=== PATIENT | female | born 1985 | race African-American/Black ===

== ENCOUNTER 2018-09-19 13:19 | Emergency (ER) | payer OTHER ==
[2018-09-19 13:46] VITALS: BP 105/42; PULSE 73; TEMP 98.4; BMI 26.8
--- NOTE | 2018-09-19 14:22 | PDOC ---
History of Present Illness - General Chief Complaint: Injury Stated Complaint: SPRAIN ANKLE Time Seen by Provider: 09/19/18 13:50 History Source: Patient Exam Limitations: Clinical Condition - History of Present Illness Initial Comments: 09/19/18 14:11 Patient with no significant past medical history present with completely normal pain to left ankle on the lateral side status post stepping on a pot hole yesterday and twisting left ankle. Patient reported increased pain to left ankle but is able to ambulate on the left foot. Patient denies any other symptoms Timing/Duration: 24 hours Past History - Past Medical History Allergies/Adverse Reactions: Allergies Allergy/AdvReac Type Severity Reaction Status Date / Time No Known Allergies Allergy Verified 09/19/18 13:45 Home Medications: Ambulatory Orders Levothyroxine [Synthroid -] 88 mcg PO DAILY 09/19/18 Naproxen 500 mg PO BID PRN #20 tablet 09/19/18 COPD: No Thyroid Disease: Yes (HYPO) - Reproductive History (#): 0 Para: 0 - Suicide/Smoking/Psychosocial Hx Smoking History: Never smoked Have you smoked in the past 12 months: No Hx Alcohol Use: No Drug/Substance Use Hx: No Substance Use Type: None Review of Systems - Review of Systems Able to Perform ROS?: Yes Is the patient limited Ukrainian proficient: No Constitutional: No: Weakness HEENTM: No: Symptoms Reported Respiratory: No: Symptoms reported Cardiac (ROS): No: Symptoms Reported ABD/GI: No: Symptoms Reported Musculoskeletal: Yes: See HPI, Joint Pain (left ankle), Joint Swelling (left ankle), Muscle Pain (lateral side of left ankle). No: Muscle Weakness All Other Systems: Reviewed and Negative *Physical Exam - Vital Signs Last Vital Signs Temp Pulse Resp BP Pulse Ox 98.4 F 73 18 105/42 L 99 09/19/18 13:43 09/19/18 13:43 09/19/18 13:43 09/19/18 13:43 09/19/18 13:43 - Physical Exam Comments: 09/19/18 14:14 GENERAL: Well developed, well nourished. Awake and alert. No acute distress. CARDIOVASCULAR: Regular rate and rhythm. No murmurs, rubs, or gallops. PULMONARY: No evidence of respiratory distress. Lungs clear to auscultation bilaterally. No wheezing, rales or rhonchi. ABDOMINAL: Soft. Non-tender. Non-distended. No rebound or guarding. No organomegaly. Normoactive bowel sounds MUSCULOSKELETAL : mild swelling over lateral malleolus of left ankle. moderate tenderness over lateral malleolus of left ankle with mild tenderness over dorsum of proximal foot. No bony deformities SKIN: Warm and dry. no cyanosis NEUROLOGICAL: Alert, awake, appropriate. No motor deficits in the lower extremities. Gait is normal with mild limp PSYCHIATRIC: Cooperative. Good eye contact. Appropriate mood and affect. General Appearance: Yes: Nourished, Appropriately Dressed. No: Apparent Distress Moderate Sedation - Procedure Monitoring Vital Signs: Procedure Monitoring Vital Signs Temperature 98.4 F 09/19/18 13:43 Pulse Rate 73 09/19/18 13:43 Respiratory Rate 18 09/19/18 13:43 Blood Pressure 105/42 L 09/19/18 13:43 O2 Sat by Pulse Oximetry (%) 99 09/19/18 13:43 ED Treatment Course - RADIOLOGY Radiology Studies Ordered: Category Date Time Status ANKLE & FOOT-LEFT* [RAD] Stat Radiology 09/19/18 14:09 Ordered Medical Decision Making - Medical Decision Making 09/19/18 14:41 Patient with no significant past medical history present with completely normal pain to left ankle on the lateral side status post stepping on a pot hole yesterday and twisting left ankle. Patient reported increased pain to left ankle but is able to ambulate on the left foot. Exam significant for mild swelling over lateral malleolus of left ankle. moderate tenderness over lateral malleolus of left ankle with mild tenderness over dorsum of proximal foot. 09/19/18 14:41 x-ray of left ankle shows no acute fracture or dislocation except lateral soft tissue swelling. Patient stable for discharge on ankle support aircast brace and postop boots with orthopedics follow-up as needed. no needed for crutches as pt able to ambulate without difficulty. *DC/Admit/Observation/Transfer Diagnosis at time of Disposition: Left ankle sprain Qualifiers: Encounter type: initial encounter Involved ligament of ankle: unspecified ligament Qualified Code(s): S93.402A - Sprain of unspecified ligament of left ankle, initial encounter - Discharge Dispostion Disposition: HOME Condition at time of disposition: Stable Decision to Admit order: No - Prescriptions Prescriptions: Naproxen 500 mg PO BID PRN #20 tablet PRN Reason: ankle pain - Referrals Referrals: Contreras Morales MD [Primary Care Provider] - - Patient Instructions Printed Discharge Instructions: DI for Ankle Sprain Additional Instructions: Ankle x-ray shows no acute fracture or dislocation ,x-ray shows mild swelling to ankle. Use ankle brace daily to help support ankle and take prescribed medication as needed for pain. Follow-up referred to orthopedics if symptoms persisted for more than 5 days. - Post Discharge Activity Forms/Work/School Notes: Back to Work
== END 2018-09-19 15:05 | disposition home or self-care (01) ==
LOC: JERFT 13:19
PROC: 2W3RX1Z Immobilization of Left Lower Leg using Splint (ICD-10-PCS; principal; 2018-09-19)
DX: S93.402A Sprain of unspecified ligament of left ankle, initial encounter (principal); X50.1XXA Overexertion from prolonged static or awkward postures, initial encounter; Y93.01 Activity, walking, marching and hiking; Y92.488 Other paved roadways as the place of occurrence of the external cause; Y99.8 Other external cause status
CPT/HCPCS: 73610-TC-LT-FY; 73630-TC-LT; 99281-25

== ENCOUNTER 2020-09-27 04:33 | Inpatient (IN) | payer OTHER ==
[2020-09-25 09:01] VITALS: BMI 28.3
[2020-09-27] MEDS ORDERED: CEFAZOLIN 2 GM/D5W 2 GM/50 ML ML IVPB ONE (06:30)
[2020-09-27] MEDS ORDERED: MIDAZOLAM HCL 2 MG/2 ML SINGLE DOSE VIAL ONE ×2 (07:22)
[2020-09-27] MEDS ORDERED: BUPIVACAINE LIPOSOME/PF (EXPAREL) 266 MG/20 ML VIAL ONE (07:32)
[2020-09-27] MEDS ORDERED: ceFAZolin 2 GRAM PREMIX BAG IVPB ONE (08:10)
[2020-09-27] MEDS ORDERED: ACETAMINOPHEN 325 MG TABLET (FP) PO PRN (09:52)
[2020-09-27] MEDS ORDERED: oxyCODONE HCL 5 MG TABLET PO PRN (09:52)
[2020-09-27] MEDS ORDERED: DOCUSATE SODIUM 100 MG CAPSULE (FP) PO PRN (09:52)
[2020-09-27] MEDS ORDERED: ONDANSETRON 4 MG/2 ML VIAL IVPUSH PRN (09:52)
[2020-09-27] MEDS ORDERED: BISACODYL 5 MG TABLET.DR (FP) PO PRN (09:52)
[2020-09-27] MEDS ORDERED: CEFAZOLIN 1 GM/D5W 1 GM/50 ML BAG IVPB SCH (10:00)
[2020-09-27] MEDS ORDERED: LACTATED RINGERS SOLUTION 1,000 ML IV SCH (10:30)
[2020-09-27] MEDS: CEFAZOLIN 1 GM/D5W 1 GM/50 ML BAG IVPB SCH (15:54)
[2020-09-27] MEDS ORDERED: CEFAZOLIN 1 GM in DEXTROSE 5%-WATER - 1 GM/50 ML IVPB IVPB SCH (16:00)
[2020-09-27] MEDS ORDERED: IBUPROFEN 800 MG/8 ML IJ IVPB PRN (18:00)
[2020-09-27 18:53] LABS: MCHC 32.4 g/dl (32.0-36.0); MEAN CELL VOLUME 71.2 fl (80-96); RBC 4.35 M/mm3 (3.60-5.2); RDW 26.3 % (11.6-15.6); WHITE BLOOD COUNT 15.1 K/mm3 (4.0-10.0)
[2020-09-27 19:14] LABS: POTASSIUM 4.2 mmol/L (3.5-5.1)
[2020-09-27 19:15] LABS: CALCIUM 8.3 mg/dL (8.5-10.1)
[2020-09-27 19:16] LABS: BLOOD UREA NITROGEN 12.3 mg/dL (7-18)
[2020-09-27 19:19] LABS: CREATININE 0.8 mg/dL (0.55-1.3)
[2020-09-27 19:57] LABS: MEAN PLT VOLUME 9.4 fl (7.5-11.1); PLATELET COUNT 197 K/MM3 (134-434)
[2020-09-27] MEDS ORDERED: ACETAMINOPHEN INJECTION 100 ML IVPB ONE (22:47)
[2020-09-27] MEDS: ACETAMINOPHEN 1000 MG/100 ML VIAL (NON FORMULARY) IVPB PRN (22:51)
[2020-09-28] MEDS: CEFAZOLIN 1 GM/D5W 1 GM/50 ML BAG IVPB SCH ×2 (01:00→08:08)
[2020-09-28] MEDS: ACETAMINOPHEN 1000 MG/100 ML VIAL (NON FORMULARY) IVPB PRN ×2 (06:50→13:15)
[2020-09-28 08:43] LABS: HEMATOCRIT 27.9 % (32.4-45.2); HEMOGLOBIN 9.2 GM/dL (10.7-15.3); MCH 23.5 pg (25.7-33.7); MEAN CELL VOLUME 71.1 fl (80-96); PLATELET COUNT 174 K/MM3 (134-434); RBC 3.93 M/mm3 (3.60-5.2); RDW 26.4 % (11.6-15.6); WHITE BLOOD COUNT 10.6 K/mm3 (4.0-10.0)
[2020-09-28] MEDS: LEVOTHYROXINE NA 100 MCG TABLET (FP) PO SCH (08:46)
[2020-09-28 08:50] LABS: POTASSIUM 3.7 mmol/L (3.5-5.1)
[2020-09-28 08:52] LABS: BLOOD UREA NITROGEN 9.5 mg/dL (7-18)
[2020-09-28 08:53] LABS: CALCIUM 8.2 mg/dL (8.5-10.1)
[2020-09-28 08:55] LABS: CREATININE 0.7 mg/dL (0.55-1.3)
[2020-09-28] MEDS: IBUPROFEN 800 MG/8 ML IJ IVPB PRN ×2 (08:57→21:00)
[2020-09-28] MEDS: ENOXAPARIN NA (PORCINE) 40 MG/0.4 ML DISP.SYRIN SQ SCH (11:24)
[2020-09-28] MEDS: SIMETHICONE 80 MG TAB.CHEW (FP) PO PRN ×2 (11:25→16:48)
[2020-09-28] MEDS: FERROUS SO4/VIT C/FA 1 EACH TABLET.ER PO SCH (11:25)
[2020-09-28] MEDS: oxyCODONE HCL 5 MG TABLET PO PRN (16:47)
[2020-09-29] MEDS: oxyCODONE HCL 5 MG TABLET PO PRN ×3 (02:24→11:09)
[2020-09-29] MEDS: SIMETHICONE 80 MG TAB.CHEW (FP) PO PRN ×2 (02:25→07:58)
[2020-09-29] MEDS: LEVOTHYROXINE NA 100 MCG TABLET (FP) PO SCH (06:40)
[2020-09-29 10:27] VITALS: BP 125/82; PULSE 80; TEMP 98
[2020-09-29] MEDS: ENOXAPARIN NA (PORCINE) 40 MG/0.4 ML DISP.SYRIN SQ SCH (11:08)
[2020-09-29] MEDS: FERROUS SO4/VIT C/FA 1 EACH TABLET.ER PO SCH (11:15)
== END 2020-09-29 12:10 | disposition home or self-care (01) | DRG 743 ==
LOC: J2C 04:33 → J3W 14:47
PROVIDERS: ADMIT Obstetrics & Gynecology; ATTEND Obstetrics & Gynecology
PROC: 0UB90ZZ Excision of Uterus, Open Approach (ICD-10-PCS; principal; 2020-09-27 07:30)
DX: D25.1 Intramural leiomyoma of uterus (principal)
CPT/HCPCS: 36415; 36430; 80048; 84703; 85027; 86850; 86900; 86901; 86922; 88305-TC; 94010; 94760; J0131; P9058

== ENCOUNTER 2021-06-06 04:54 | Day surgery (SDC) | payer OTHER ==
[2021-06-05 16:27] VITALS: BMI 29.2
[2021-06-06] MEDS ORDERED: MIDAZOLAM HCL 2 MG/2 ML SINGLE DOSE VIAL ONE (14:54)
[2021-06-06] MEDS ORDERED: PROPOFOL 20 ML ONE (14:54)
[2021-06-06] MEDS ORDERED: oxyCODONE HCL 5 MG TABLET PO PRN ×2 (15:22→19:13)
[2021-06-06] MEDS ORDERED: ACETAMINOPHEN 325 MG TABLET (FP) PO PRN (15:22)
[2021-06-06] MEDS ORDERED: IBUPROFEN 400 MG TABLET (FP) PO PRN (15:22)
[2021-06-06] MEDS ORDERED: OXYTOCIN 20 UNITS in LACTATED RINGERS SOLUTION 1,000 ML IVPB ONE (16:35)
[2021-06-06] MEDS ORDERED: OXYTOCIN 10 UNITS/ML VIAL ONE (16:36)
[2021-06-06] MEDS ORDERED: ONDANSETRON 4 MG/2 ML VIAL IVPUSH PRN (19:13)
[2021-06-06] MEDS ORDERED: LACTATED RINGERS SOLUTION 1,000 ML IV SCH (19:15)
[2021-06-06 19:38] VITALS: BP 154/74; PULSE 76; TEMP 97.7
== END 2021-06-06 19:50 | disposition home or self-care (01) ==
LOC: JASU-SURG 04:54
PROVIDERS: ATTEND Obstetrics & Gynecology
PROC: 0UB98ZZ Excision of Uterus, Via Natural or Artificial Opening Endoscopic (ICD-10-PCS; principal; 2021-06-06 13:10)
PROC: 0UDB8ZX Extraction of Endometrium, Via Natural or Artificial Opening Endoscopic, Diagnostic (ICD-10-PCS; 2021-06-06 13:10)
DX: D25.0 Submucous leiomyoma of uterus (principal); N84.0 Polyp of corpus uteri
CPT/HCPCS: 88305-TC; 94760

== ENCOUNTER 2024-04-14 14:38 | Emergency (ER) | payer OTHER ==
[2024-04-14 14:44] VITALS: BP 125/85; PULSE 94; RESP 20; TEMP 98.7; BMI 31.9
[2024-04-14 15:26] LABS: HCG,QUALITATIVE URINE Positive
[2024-04-14 15:29] LABS: EPI CELLS >36 /uL (0-25.1); HYALINE CASTS 3 /uL (0-3.1); URINE APPEARANCE CLOUDY; URINE BACTERIA >9,000 /uL (0-1359); URINE BILIRUBIN NEGATIVE (NEGATIVE); URINE COLOR YELLOW; URINE GLUCOSE (UA) NEGATIVE (NEGATIVE); URINE KETONE NEGATIVE (NEGATIVE); URINE LEUK ESTERASE 2+ (NEGATIVE); URINE NITRITE POSITIVE (NEGATIVE); URINE PROTEIN NEGATIVE (NEGATIVE); URINE RBC 10 /uL (0-23.9); URINE WBC 139 /uL (0-25.8)
[2024-04-14 15:45] LABS: POTASSIUM 3.5 mmol/L (3.5-5.1)
[2024-04-14 15:47] LABS: ALBUMIN 3.8 g/dl (3.4-5.0); CALCIUM 9.1 mg/dL (8.5-10.1)
[2024-04-14 15:48] LABS: BLOOD UREA NITROGEN 11.8 mg/dL (7-18)
[2024-04-14 15:49] LABS: BASO % 0.7 % (0-2.0); EOS % 1.7 % (0-4.5); HEMATOCRIT 40.3 % (32.4-45.2); HEMOGLOBIN 14.2 GM/dL (10.7-15.3); LYMPH % 30.3 % (8-40); MCH 29.3 pg (25.7-33.7); MCHC 35.3 g/dl (32.0-36.0); MEAN CELL VOLUME 82.9 fl (80-96); MEAN PLT VOLUME 8.6 fl (7.5-11.1); MONO % 8.1 % (3.8-10.2); NEUT % 59.2 % (42.8-82.8); PLATELET COUNT 203 10^3/uL (134-434); RBC 4.86 M/mm3 (3.60-5.2); RDW 15.1 % (11.6-15.6); WHITE BLOOD COUNT 8.2 K/mm3 (4.0-10.0)
[2024-04-14 15:52] LABS: BILIRUBIN,TOTAL 0.5 mg/dL (0.2-1); TOT PROT 8.6 g/dl (6.4-8.2)
[2024-04-14] MEDS ORDERED: CEPHALEXIN MONOHYDRATE 500 MG CAPSULE (UD) ONE (17:28)
== END 2024-04-14 17:40 | disposition home or self-care (01) ==
LOC: JER 14:38
DX: O09.511 Supervision of elderly primigravida, first trimester (principal); O26.891 Other specified pregnancy related conditions, first trimester; O34.11 Maternal care for benign tumor of corpus uteri, first trimester; D25.9 Leiomyoma of uterus, unspecified; Z3A.01 Less than 8 weeks gestation of pregnancy
CPT/HCPCS: 36415; 76830-TC; 80053; 81003; 84702; 84703; 85025; 86850; 86900; 86901; 87086; 87186; 99284-25